=== PATIENT | male | born 1980 | race Two or more races ===

== ENCOUNTER 2018-12-10 12:14 | Emergency (ER) | payer OTHER ==
[~2018-12-10] VITALS: Ht 172.7 cm; Wt 65.8 kg
[2018-12-10] MEDS ORDERED: Acetaminophen 500mg (ES) tab ORAL ONE (12:30)
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
[2018-12-10 13:48] VITALS: BP 136/86
--- NOTE | 2018-12-10 14:11 | Diagnostic Imaging Report ---
Indication: Lumbar spine pain Technique: 3 views of the lumbar spine Comparison: None Findings:There is slight levoscoliotic deformity, likely an artifact of positioning. Bony alignment is otherwise normal. Vertebral body heights are preserved. Disc spaces are preserved. There are small anterior osteophytes. The pedicles are intact. The sacroiliac joint spaces are preserved. The surrounding soft tissues are unremarkable Impression: No acute process
--- NOTE | 2018-12-10 14:13 | Diagnostic Imaging Report ---
Indication: Right knee pain Technique: 3 views of the right knee Comparison: None Findings: No suprapatellar effusion. No acute fractures. No dislocations. Joint spaces are preserved Impression: Negative
--- NOTE | 2018-12-10 14:18 | Diagnostic Imaging Report ---
Indication: Left knee pain Technique: 3 views of the left knee Comparison: None Findings: Apparent overlapping bone in the left femoral condyle is probably just physiologic due to slight scalloping of the articular surface, but osteochondral defect is not completely excludable. No acute fractures otherwise. No dislocations. No effusions There is a small calcified nonossifying fibroma projected along the endosteal surface of the posterior distal femoral cortex. Impression: Somewhat unusual appearance to the lateral femoral condyle, probably just physiologic bony overlap an osteochondral defect cannot completely excludable. Correlate with clinical findings. No acute process otherwise Distal femoral nonossifying fibroma incidentally noted Findings discussed by phone with nurse practitioner Jen Mancia in the emergency room at the time of interpretation
[2018-12-10] MEDS ORDERED: IBUPROFEN600 MG ORAL (15:01)
[2018-12-10 15:11] VITALS: BP 136/86
--- NOTE | 2018-12-10 16:28 | Diagnostic Imaging Report ---
Indications: Thoracic spine pain Technique: Two views of the thoracic spine Comparison: None Findings: There is minimal thoracic scoliotic deformity. Otherwise normal bony alignment. Vertebral body heights are preserved. The disc spaces are preserved. Pedicles are intact Impression: No acute process
== END 2018-12-10 15:13 | disposition home or self-care (01) ==
LOC: EDBD 12:14 → EMR 13:08
DX: S80.02XA Contusion of left knee, initial encounter (principal); M21.952 Unspecified acquired deformity of left thigh; M54.9 Dorsalgia, unspecified; M25.561 Pain in right knee; V79.50XA Passenger on bus injured in collision with unspecified motor vehicles in traffic accident, initial encounter; Y92.410 Unspecified street and highway as the place of occurrence of the external cause
CPT/HCPCS: 72020; 72070; 99284